=== PATIENT | female | born 1990 | race Asian ===

== ENCOUNTER 2022-01-26 07:06 | Day surgery (SDC) | payer OTHER ==
[2022-01-26] MEDS ORDERED: IRON SUCROSE INJECTION 200 MG in SODIUM CHLORIDE 100 ML IVPB ONE (08:30)
[2022-01-26 14:03] VITALS: RESP 16; TEMP 98.2
[2022-01-26 14:05] VITALS: BP 108/68; PULSE 84
== END 2022-01-26 09:45 | disposition home or self-care (01) ==
LOC: JONCNONCHE 07:06
PROVIDERS: ATTEND Internal Medicine Hematology & Oncology
PROC: 3E013GC Introduction of Other Therapeutic Substance into Subcutaneous Tissue, Percutaneous Approach (ICD-10-PCS; principal; 2022-01-26)
DX: D50.9 Iron deficiency anemia, unspecified (principal)
CPT/HCPCS: 96365; J1756

== ENCOUNTER 2022-02-02 06:29 | Day surgery (SDC) | payer OTHER ==
[2022-02-02] MEDS ORDERED: IRON SUCROSE INJECTION 200 MG in SODIUM CHLORIDE 100 ML IVPB ONE (09:00)
[2022-02-02 14:52] VITALS: BP 94/54; PULSE 80; RESP 16; TEMP 98.5
== END 2022-02-02 10:15 | disposition home or self-care (01) ==
LOC: JONCNONCHE 06:29
PROVIDERS: ATTEND Internal Medicine Hematology & Oncology
PROC: 3E033GC Introduction of Other Therapeutic Substance into Peripheral Vein, Percutaneous Approach (ICD-10-PCS; principal; 2022-02-02)
DX: D50.9 Iron deficiency anemia, unspecified (principal)
CPT/HCPCS: 96365; J1756

== ENCOUNTER 2022-02-09 06:55 | Day surgery (SDC) | payer OTHER ==
[2022-02-09] MEDS ORDERED: IRON SUCROSE INJECTION 200 MG in SODIUM CHLORIDE 100 ML IVPB ONE ×2 (07:45→10:00)
[2022-02-09 15:01] VITALS: PULSE 80; RESP 18; TEMP 98.3
[2022-02-09 15:04] VITALS: BP 99/52
== END 2022-02-09 09:15 | disposition home or self-care (01) ==
LOC: JONCNONCHE 06:55
PROVIDERS: ATTEND Internal Medicine Hematology & Oncology
PROC: 3E033GC Introduction of Other Therapeutic Substance into Peripheral Vein, Percutaneous Approach (ICD-10-PCS; principal; 2022-02-09)
DX: D50.9 Iron deficiency anemia, unspecified (principal)
CPT/HCPCS: 96365; J1756

== ENCOUNTER 2022-02-16 07:36 | Day surgery (SDC) | payer OTHER ==
[2022-02-16] MEDS ORDERED: IRON SUCROSE INJECTION 200 MG in SODIUM CHLORIDE 100 ML IVPB ONE (08:00)
[2022-02-16 14:27] VITALS: RESP 16; TEMP 97
[2022-02-17 07:44] VITALS: BP 110/52; PULSE 84
== END 2022-02-16 08:30 | disposition home or self-care (01) ==
LOC: JONCNONCHE 07:36
PROVIDERS: ATTEND Internal Medicine Hematology & Oncology
PROC: 3E033GC Introduction of Other Therapeutic Substance into Peripheral Vein, Percutaneous Approach (ICD-10-PCS; principal; 2022-02-16)
DX: D50.9 Iron deficiency anemia, unspecified (principal)
CPT/HCPCS: 96365; J1756